=== PATIENT | female | born 1985 | race American Indian/Alaskan Native ===

== ENCOUNTER 2020-10-23 10:55 | Emergency (ER) | payer SELFPAY ==
[2020-10-23 11:32] VITALS: BP 118/60
--- NOTE | 2020-10-23 12:35 | Emergency Department Report ---
- General Chief complaint: Extremity Injury, Lower Stated complaint: RT LEG LUMP Time Seen by Provider: 10/23/20 12:26 Source: patient Mode of arrival: Ambulatory Limitations: No Limitations - History of Present Illness Initial comments: This is a 35-year-old female nontoxic, well nourished in appearance, no acute signs of distress presents to the ED with c/o of right cyst to upper thigh for months. Denies any symptoms to this. Stated has intermittent numbness to that area but denies any numbness. Patient denies any pus or drainage. Patient denies any fever, chills, nausea, vomiting, chest pain, shortness of breath, headache or stiff neck. Patient denies any allergies or significant past medical history. -: month(s) Severity scale (0 -10): 0 Improves with: none Worsens with: none Associated symptoms: denies other symptoms - Related Data Allergies Allergy/AdvReac Type Severity Reaction Status Date / Time No Known Allergies Allergy Unverified 10/23/20 11:30 Abscess Boil HPI - HPI Chief Complaint: Extremity Injury, Lower Stated Complaint: RT LEG LUMP Time Seen by Provider: 10/23/20 12:26 Allergies/Adverse Reactions: Allergies Allergy/AdvReac Type Severity Reaction Status Date / Time No Known Allergies Allergy Unverified 10/23/20 11:30 ED Review of Systems ROS: Stated complaint: RT LEG LUMP Other details as noted in HPI Comment: All other systems reviewed and negative Constitutional: denies: chills, fever Eyes: denies: eye pain, eye discharge, vision change ENT: denies: ear pain, throat pain Respiratory: denies: cough, shortness of breath, wheezing Cardiovascular: denies: chest pain, palpitations Endocrine: no symptoms reported Gastrointestinal: denies: abdominal pain, nausea, diarrhea Genitourinary: denies: urgency, dysuria, discharge Musculoskeletal: denies: back pain, joint swelling, arthralgia Skin: denies: rash, lesions Neurological: denies: headache, weakness, paresthesias Psychiatric: denies: anxiety, depression Hematological/Lymphatic: denies: easy bleeding, easy bruising ED Past Medical Hx - Past Medical History Hx Diabetes: Yes (" I HAVENT BE CHECKED IN ALONG TIME.') - Surgical History Past Surgical History?: No ED Physical Exam - General Limitations: No Limitations General appearance: alert, in no apparent distress - Head Head exam: Present: atraumatic, normocephalic - Eye Eye exam: Present: normal appearance - Neck Neck exam: Present: normal inspection, full ROM - Respiratory Respiratory exam: Absent: respiratory distress - Cardiovascular Cardiovascular Exam: Present: regular rate - Extremities Exam Extremities exam: Present: normal inspection, full ROM, normal capillary refill, other (Mobile superficial cyst to the right upper medial thigh. No tenderness. No redness. No cellulitis or abscess. No induration or fluctuance.). Absent: tenderness - Back Exam Back exam: Present: normal inspection, full ROM - Neurological Exam Neurological exam: Present: alert, oriented X3, normal gait - Psychiatric Psychiatric exam: Present: normal affect, normal mood - Skin Skin exam: Present: warm, dry, intact, normal color. Absent: rash ED Course Vital Signs 10/23/20 11:31 Temperature 98.4 F Pulse Rate 60 Respiratory 20 Rate Blood Pressure 118/60 O2 Sat by Pulse 98 Oximetry - Reevaluation(s) Reevaluation #1: 10/23/20 12:30 Patient is speaking in full sentences with no signs of distress noted. ED Medical Decision Making - Medical Decision Making 35-year-old female that presents with a dermoid cyst. Patient stable and was examined by me. Vital signs are stable. Patient was instructed to follow-up with a primary care doctor in 3-5 days or if symptoms worsen and continue return to emergency room as soon as possible. At time of discharge, the patient does not seem toxic or ill in appearance. No acute signs of distress noted. Patient agrees to discharge treatment plan of care. No further questions noted by the patient. Critical care attestation.: If time is entered above; I have spent that time in minutes in the direct care of this critically ill patient, excluding procedure time. ED Disposition Clinical Impression: Dermoid cyst Disposition: DC-01 TO HOME OR SELFCARE Is pt being admited?: No Does the pt Need Aspirin: No Condition: Stable Additional Instructions: Follow-up with a primary care doctor in 3-5 days or if symptoms worsen and continue return to emergency room as soon as possible. Referrals: PRIMARY MD KASH [Primary Care Provider] - 3-5 Days JUAN CARLOS WALKER MD [Staff Physician] - 3-5 Days Time of Disposition: 12:34
== END 2020-10-23 13:07 | disposition home or self-care (01) ==
LOC: ED 10:55
DX: D36.9 Benign neoplasm, unspecified site (principal); E11.9 Type 2 diabetes mellitus without complications
CPT/HCPCS: 99282

== ENCOUNTER 2021-02-15 15:34 | Emergency (ER) | payer OTHER ==
[2021-02-15 17:19] VITALS: BP 109/74
== END 2021-02-16 07:00 | disposition left against medical advice (07) ==
LOC: ED 15:34
DX: R69 Illness, unspecified (principal); Z53.21 Procedure and treatment not carried out due to patient leaving prior to being seen by health care provider
CPT/HCPCS: 36415; 80053; 82805; 82962; 84703; 85025

== ENCOUNTER 2022-04-01 11:25 | Day surgery (SDC) | payer OTHER ==
[~2022-04-01 11:25] MED LIST: LACTATED RINGERS 1,000 ML IV SCH; MIDAZOLAM 2 MG/2 ML INJ IV NR; SCOPOLAMINE TRANSDERMAL PATCH 72 HR TD NR; ceFAZolin/NS 2 GM/100 ML 2 GM/100 ML BAG IV SCH
[2022-04-01] MEDS ORDERED: MIDAZOLAM 2 MG/2 ML INJ ONE (12:39)
[2022-04-01] MEDS ORDERED: propofoL 200 MG/20 ML VIAL IV ONE ×2 (12:39→13:13)
[2022-04-01] MEDS ORDERED: fentaNYL 100 MCG/2 ML INJ ONE (12:39)
--- NOTE | 2022-04-01 12:48 | Anesthesia Day of Surgery ---
Anesthesia Day of Surgery - Day of Surgery Patient Examined: Yes Patient H&P Reviewed: Yes Patient is NPO: Yes
--- NOTE | 2022-04-01 12:50 | Anesthesia Consultation ---
Anesthesia Consult and Med Hx Date of service: 04/01/22 - Airway Anesthetic Teeth Evaluation: Good ROM Head & Neck: Adequate Mental/Hyoid Distance: Adequate Mallampati Class: Class II Intubation Access Assessment: Good - Pulmonary Exam CTA: Yes - Cardiac Exam Cardiac Exam: RRR - Pre-Operative Health Status ASA Pre-Surgery Classification: ASA3 Proposed Anesthetic Plan: MAC - Pulmonary Hx Smoking: Yes - Cardiovascular System Hx Hypertension: Yes - Central Nervous System Hx Psychiatric Problems: No - Gastrointestinal Hx Gastroesophageal Reflux Disease: No - Endocrine Hx Insulin Dependent Diabetes: Yes - Other Systems Hx Alcohol Use: Yes (Occas) Hx Substance Use: Yes (marijuana) Hx Cancer: No
[2022-04-01] MEDS ORDERED: ceFAZolin/Water 2 GM/20 ML 2 GM/20 ML SYRINGE IV ONE (12:51)
[2022-04-01] MEDS ORDERED: LIDOCAINE MPF (2%) 20 MG/1 ML VIAL 5 ML ONE ×2 (12:57→13:15)
[2022-04-01] MEDS ORDERED: ceFAZolin/STERILE WATER 2 GM/20 ML SYRINGE IV NR (13:00)
[2022-04-01] MEDS ORDERED: BUPIVACAINE/PF (0.5%) 5 MG/1 ML 30 ML VIAL INFILTRATI ONE (13:01)
[2022-04-01] MEDS ORDERED: BUPIVACAINE-EPINEPHRINE/PF 0.5%-1:200,000 (30 ML) VIAL INFILTRATI ONE ×2 (13:13→13:37)
[2022-04-01] MEDS ORDERED: dexAMETHasone 20 MG/5 ML VIAL ONE (13:15)
[2022-04-01] MEDS ORDERED: ONDANSETRON 4 MG/2 ML INJ ONE (13:15)
[2022-04-01] MEDS ORDERED: ePHEDrine SULFATE 50 MG/1 ML INJ ONE (13:25)
[2022-04-01] MEDS ORDERED: KETOROLAC 30 MG/1 ML INJ ONE (13:31)
[2022-04-01] MEDS ORDERED: LIDOCAINE MPF (2%) 20 MG/1 ML VIAL 5 ML INFILTRATI ONE (13:37)
--- NOTE | 2022-04-01 13:50 | Short Stay Summary ---
Short Stay Documentation Date of service: 04/01/22 - History H&P: obtained from office - Allergies and Medications Current Medications: Allergies No Known Allergies Allergy (Verified 03/24/22 18:51) Home Medications Medication Instructions Recorded Confirmed Last Taken Type Insulin Detemir [Levemir Flextouch] 10 unit SQ QAM 03/24/22 04/01/22 03/31/22 22:00 History metFORMIN [Glucophage] 500 mg PO BID 03/24/22 04/01/22 03/31/22 22:00 History Active Medications Cefazolin Sodium (Cefazolin/Sterile Water 2 Gm/20 Ml Syringe) 2 gm IV PREOP NR Stop: 04/01/22 23:59 Lactated Ringer's (Lactated Ringers) 1,000 mls @ 100 mls/hr IV DIRECT MICHAEL Stop: 04/01/22 23:59 Midazolam HCl (Midazolam 2 Mg/2 Ml Inj) 2 mg IV PREOP NR Stop: 04/01/22 23:59 Scopolamine (Scopolamine Transdermal Patch 72 Hr) 1 each TD PREOP NR Stop: 04/01/22 23:59 - Brief post op/procedure progress note Date of procedure: 04/01/22 Pre-op diagnosis: Cystic lesion right thigh Post-op diagnosis: same Procedure: Excision of cystic lesion right thigh Anesthesia: MAC Findings: Mucinous cystic lesion right thigh proximately 2 cm in diameter completely excised. Surgeon: MIRI GALLEGOS Estimated blood loss: minimal Pathology: list (Cystic lesion mucinous of right thigh) Specimen disposition: to lab Condition: stable - Disposition Condition at discharge: Good Disposition: 01 HOME / SELF CARE / HOMELESS Short Stay Discharge Plan Activity: no restrictions Weight Bearing Status: Weight Bear as Tolerated Diet: regular Wound: open to air Follow up with: PRIMARY CAREMD [Primary Care Provider] - 7 Days MIRI GALLEGOS MD [Staff Physician] - 7 Days Prescriptions: HYDROcodone/APAP 5-325 [[place] 5/325] 1 each PO Q6HR PRN #10 tablet PRN Reason: Pain
--- NOTE | 2022-04-01 13:55 | Operative Report ---
Operative Report Operative Report: Date: 04/01/2022 Preop diagnosis: Cystic lesion right thigh Postop diagnosis: Same mucinous lesion right thigh 2 cm Procedure: Excision of mucinous lesion right thigh Surgeon: Dr. Lobo Strike Off Machine Operator: None Anesthesia: MAC IV sedation Estimated blood loss: Minimal Specimen: Mucinous lesion right thigh 2 cm size Findings: This patient is noted to have a subcutaneous nodule consistent with a sebaceous cyst in the right thigh medially. The patient is taken to the OR and under IV sedation MAC anesthesia timeouts are completed consents on the chart. The the patient received 2 g of Ancef. The area was prepped with Betadine and draped in a sterile fashion. Elliptical incision is made over the lipoma site with a #15 scalpel. The area is infiltrated with 1% lidocaine and half percent Marcaine. Electrocautery was used to dissect the lesion completely from the area. Hemostasis obtained with electrocautery. Wound is irrigated with saline. Wound is closed in layers with 2 and 3-0 Vicryl. Skin is closed with Dermabond and 4-0 Monocryl. Closure is reinforced with Steri-Strips and Mastisol.
--- NOTE | 2022-04-01 14:46 | Post Anesthesia Evaluation ---
- Post Anesthesia Evaluation Patient Participated: Yes Airway Patent: Yes Stable Respiratory Function: Yes Nausea/Vomiting: No Temp > 96.8F: Yes Pain Manageable: Yes Adequeate Hydration: Yes Anesthesia Complications: No
[2022-04-01 14:59] VITALS: BP 106/61
== END 2022-04-01 14:45 | disposition home or self-care (01) ==
LOC: OR 11:25
PROVIDERS: ATTEND Surgery
DX: R22.41 Localized swelling, mass and lump, right lower limb (principal); D17.23 Benign lipomatous neoplasm of skin and subcutaneous tissue of right leg; I10 Essential (primary) hypertension; E11.9 Type 2 diabetes mellitus without complications; F17.210 Nicotine dependence, cigarettes, uncomplicated; Z79.899 Other long term (current) drug therapy; Z79.4 Long term (current) use of insulin; Z72.89 Other problems related to lifestyle; Z98.890 Other specified postprocedural states
CPT/HCPCS: 82962; 88304; 88305; 88341; 88342; J3490; J0690; J1100; J1885; J2250; J2405; J2704; J3010